=== PATIENT | female | born 1985 | race Caucasian/White ===

== ENCOUNTER 2016-09-27 16:24 | Emergency (ER) | payer OTHER ==
[~2016-09-27] VITALS: Ht 154.9 cm; Wt 49.5 kg
[~2016-09-27 16:24] MED LIST: BUTALBITAL/APAP1 TA1 PO; DEPAKOTE ER 50500 MG PO; FIORICET 325 MG1 TA1 PO; GENTAMICIN EYE D5 ML OS; LAMISIL1% TP; MIDRIN; NO HOME MEDICATIONS; WESTCORT 0.2% C15 GM TP
[2016-09-27 16:25] VITALS: BP 128/71; PULSE 110; TEMP 99.3
[2016-09-27] MEDS ORDERED: [UNRECOGNIZED DRUG - OTHER] (16:59)
== END 2016-09-27 17:28 | disposition home or self-care (01) ==
LOC: COL.ER 16:24
DX: O99.351 Diseases of the nervous system complicating pregnancy, first trimester (principal); G43.909 Migraine, unspecified, not intractable, without status migrainosus; O99.331 Smoking (tobacco) complicating pregnancy, first trimester; F17.210 Nicotine dependence, cigarettes, uncomplicated; Z3A.12 12 weeks gestation of pregnancy

== ENCOUNTER 2016-11-14 14:50 | Emergency (ER) | payer OTHER ==
[~2016-11-14] VITALS: Ht 154.9 cm; Wt 50.5 kg
[~2016-11-14 14:50] MED LIST changes: +[UNRECOGNIZED DRUG - OTHER]
[2016-11-14 14:52] VITALS: BP 121/68; TEMP 97.1
[2016-11-14 16:48] LABS: PH 7 (5-8); SQUAMOUS EPITHELIAL 0-2 /hpf; URINE APPEARANCE Hazy; URINE BACTERIA Rare /hpf; URINE BILIRUBIN Negative (NEGATIVE); URINE BLOOD 2+ (NEGATIVE); URINE COLOR Yellow; URINE GLUCOSE Negative (NEGATIVE); URINE KETONE Negative (NEGATIVE); URINE RBC >50 /hpf; URINE UROBILINOGEN Negative (NEGATIVE); URINE WBC None Seen /hpf
[2016-11-14 16:52] LABS: BASO # 0.1 (0.0-0.2); BASO % 0.4 % (0.0-2.0); EOS # 0.2 (0.0-0.7); EOS % 1.1 % (0-4.0); GRAN # 10.3 (1.4-6.5); GRAN % 75.8 % (42.2-75.2); LYMPH # 2.4 (1.2-3.4); LYMPH % 17.9 % (20.0-51.0); MEAN CELL VOLUME 89 fl (80.0-100.0); MEAN CORPUSCULAR HGB CONC 35 g/dl (33.0-37.0); MEAN PLATELET VOLUME 10.5 fl (7.4-10.4); MONO # 0.6 (0.1-0.6); MONO % 4.4 % (1.7-9.3); PLATELET COUNT 258 K/mm3 (130-400); RED BLOOD COUNT 3.44 M/mm3 (4.10-5.30); REDCELL DISTRIBUTION WIDTH-CV 12.8 % (11.5-14.5); WHITE BLOOD COUNT 13.6 K/mm3 (4.8-10.8)
[2016-11-14 16:54] LABS: HEMATOCRIT 30.7 % (37.0-47.0); HEMOGLOBIN 10.8 g/dl (12.5-16.0); MEAN CORPUSCULAR HEMOGLOBIN 31 pg (27.0-31.0)
[2016-11-14 17:03] LABS: ADJUSTED CALCIUM 9.3 mg/dL (8.4-10.2); ALBUMIN 3.9 gm/dL (3.5-5.0); BILIRUBIN,TOTAL 0.3 mg/dL (0.0-1.0); C-REACTIVE PROTEIN 0.6 mg/dL (0.0-0.9); CALCIUM 9.2 mg/dL (8.4-10.2); CREATININE, serum 0.5 mg/dL (0.52-1.25); POTASSIUM 3.9 mmol/L (3.4-5.0); TOTAL PROTEIN 6.9 gm/dL (6.4-8.2)
[2016-11-14 17:29] VITALS: PULSE 86
== END 2016-11-14 17:29 | disposition home or self-care (01) ==
LOC: COL.ER 14:50
PROVIDERS: Nurse Practitioner
DX: O26.892 Other specified pregnancy related conditions, second trimester (principal); R10.2 Pelvic and perineal pain; O99.332 Smoking (tobacco) complicating pregnancy, second trimester; F17.210 Nicotine dependence, cigarettes, uncomplicated; Z3A.18 18 weeks gestation of pregnancy; Z90.89 Acquired absence of other organs

== ENCOUNTER 2017-02-23 19:46 | Outpatient (CLI) | payer OTHER ==
[~2017-02-23] VITALS: Ht 154.9 cm; Wt 60.5 kg
[2017-02-23 19:59] VITALS: BP 125/77; PULSE 103; TEMP 98.8
[2017-02-23] MEDS ORDERED: NEXIUM 20MG20 MG PO (20:02)
[2017-02-23 21:00] VITALS: BP 116/67; PULSE 90
[2017-02-23 21:06] LABS: COLLECTION METHOD CLEAN CATCH
[2017-02-23 21:15] LABS: MUCOUS Present /lpf; PH 7 (5-8); SQUAMOUS EPITHELIAL 0-2 /hpf; URINE APPEARANCE Clear; URINE BACTERIA Occasional /hpf; URINE BILIRUBIN Negative (NEGATIVE); URINE BLOOD Negative (NEGATIVE); URINE COLOR Straw; URINE GLUCOSE Negative (NEGATIVE); URINE KETONE Negative (NEGATIVE); URINE LEUKOCYTE ESTERASE Negative (NEGATIVE); URINE PROTEIN(semi-quant) Negative (NEGATIVE); URINE RBC 0-2 /hpf; URINE UROBILINOGEN Negative (NEGATIVE)
[2017-02-23 22:00] VITALS: BP 116/69; PULSE 93
== END 2017-02-23 22:10 | disposition home or self-care (01) ==
LOC: LDRO 19:46
PROVIDERS: Obstetrics & Gynecology
DX: O26.893 Other specified pregnancy related conditions, third trimester (principal); Z3A.33 33 weeks gestation of pregnancy

== ENCOUNTER 2017-05-29 17:45 | Emergency (ER) | payer OTHER ==
[~2017-05-29] VITALS: Ht 154.9 cm; Wt 55.9 kg
[~2017-05-29 17:45] MED LIST changes: +NEXIUM 20MG20 MG PO
[2017-05-29 17:47] VITALS: TEMP 99.4
[2017-05-29] MEDS ORDERED: MOTRIN 800800 MG/TAB PO (17:50)
[2017-05-29] MEDS ORDERED: DOXYCYCLINE 10100 MG PO (17:51)
[2017-05-29] MEDS ORDERED: BACTRIM DS 8001 TAB PO (17:51)
[2017-05-29 18:24] LABS: BASO # 0.1 (0.0-0.2); BASO % 0.5 % (0.0-2.0); EOS # 0.4 (0.0-0.7); EOS % 2.6 % (0-4.0); GRAN # 12.1 (1.4-6.5); LYMPH # 2.2 (1.2-3.4); LYMPH % 14.2 % (20.0-51.0); MEAN CELL VOLUME 87 fl (80.0-100.0); MEAN CORPUSCULAR HGB CONC 33 g/dl (33.0-37.0); MEAN PLATELET VOLUME 9.6 fl (7.4-10.4); MONO # 0.7 (0.1-0.6); MONO % 4.3 % (1.7-9.3); PLATELET COUNT 452 K/mm3 (130-400); RED BLOOD COUNT 3.97 M/mm3 (4.10-5.30); REDCELL DISTRIBUTION WIDTH-CV 12.8 % (11.5-14.5)
[2017-05-29 18:29] LABS: HEMATOCRIT 34.4 % (37.0-47.0); HEMOGLOBIN 11.5 g/dl (12.5-16.0); MEAN CORPUSCULAR HEMOGLOBIN 29 pg (27.0-31.0)
[2017-05-29] MEDS ORDERED: DICLOXACILLIN500 MG PO (18:54)
[2017-05-29 19:41] VITALS: BP 124/88; PULSE 98
== END 2017-05-29 19:47 | disposition home or self-care (01) ==
LOC: COL.ER 17:45
PROVIDERS: Physician Assistant
DX: N61.1 Abscess of the breast and nipple (principal); Z98.890 Other specified postprocedural states
CPT/HCPCS: J1170; J2405; J7030

== ENCOUNTER 2017-05-30 18:30 | Emergency (ER) | payer OTHER ==
[~2017-05-30] VITALS: Ht 154.9 cm; Wt 55.9 kg
[~2017-05-30 18:30] MED LIST changes: +BACTRIM DS 8001 TAB PO; +DICLOXACILLIN500 MG PO; +DOXYCYCLINE 10100 MG PO; +MOTRIN 800800 MG/TAB PO
[2017-05-30 18:32] VITALS: BP 119/69; PULSE 104; TEMP 98.6
== END 2017-05-30 19:14 | disposition home or self-care (01) ==
LOC: COL.ER 18:30
DX: S40.011A Contusion of right shoulder, initial encounter (principal); W03.XXXA Other fall on same level due to collision with another person, initial encounter; Y93.61 Activity, american tackle football

== ENCOUNTER 2017-05-31 18:37 | Emergency (ER) | payer OTHER ==
[~2017-05-31] VITALS: Ht 154.9 cm; Wt 54.5 kg
[2017-05-31 18:40] VITALS: BP 136/76; TEMP 98.5
[2017-05-31 19:05] VITALS: PULSE 104
== END 2017-05-31 19:05 | disposition home or self-care (01) ==
LOC: COL.ER 18:37
DX: N61.1 Abscess of the breast and nipple (principal); F17.210 Nicotine dependence, cigarettes, uncomplicated; Z98.818 Other dental procedure status; Z90.89 Acquired absence of other organs; Z98.890 Other specified postprocedural states